=== PATIENT | female | born 1990 | race Caucasian/White ===

== ENCOUNTER 2024-12-05 15:30 | Outpatient (CLI) | payer MEDICAID, SELFPAY ==
--- NOTE | 2024-12-07 12:45 | PDOC.EEG ---
Neurology EEG EEG: [facility] Department of Neurology EEG REPORT Date of Recordin12/05/24 Interpreting Physician: Dr. Kitty Young PCP/Referring Provider: Alissa Andrade ND Reason for study: Yuly Chakraborty is a 34 year-old with spells concerning for seizure. Current Medications: Home Medications ?Medication ?Instructions ?Recorded ?Confirmed ?Type clonidine HCl 0.1 mg tablet 0.1 mg PO TID 11/24/24 12/01/24 History dextroamphetamine-amphetamine ER 20 mg PO DAILY 11/24/24 12/01/24 History 20 mg 24hr capsule,extend release (Adderall XR) gabapentin 400 mg capsule 400 mg PO DAILY 11/24/24 12/01/24 History hydroxyzine HCl 50 mg tablet 50 mg PO QHS 11/24/24 12/01/24 History lamotrigine 200 mg tablet 200 mg PO DAILY 11/24/24 12/01/24 History (Lamictal) lurasidone 60 mg tablet (Latuda) 60 mg PO DAILY 11/24/24 12/01/24 History metformin 500 mg tablet 500 mg PO BIDWMEAL 11/24/24 12/01/24 History olanzapine 5 mg tablet 5 mg PO QHS 11/24/24 12/01/24 History quetiapine 25 mg tablet 25 mg PO QHS 11/24/24 12/01/24 History METHODS: A 21 channel digitized electroencephalogram was performed in the [facility] Clinical Neurophysiology Laboratory. The 10/20 international system of electrode placement was used and bipolar and referential electrode montages were recorded. In addition to EEG the patient was monitored for EKG and lateral/vertical eye movements. Activation procedures of photic stimulation and hyperventilation were performed if applicable. Video was used during activation procedures and during events where applicable. The duration of the recording was ~68 minutes. DESCRIPTION OF EEG: The patient was noted to be awake and drowsy during the recording. During maximal wakefulness a 9-Hz posterior background rhythm was present which was well-modulated, symmetrical, reactive to eye opening, and of moderate voltage. With eye opening the background activity changed to a low voltage mixture of alpha, beta, and occasional theta range frequencies. Faster frequencies were present in the bilateral anterior head regions. There was a normal anterior-posterior voltage gradient. During drowsiness, there was attenuation of the posterior dominant background rhythm and vertex waves. No stage II sleep was recorded. Activating Procedures: Photic stimulation was performed which produced a symmetrical posterior driving response at various flash frequencies. Hyperventilation was performed with moderate effort and produced no physiological slowing of the background. EKG: EKG revealed normal sinus rhythm. INTERPRETATION: This EEG is normal during the awake and drowsy states as well as during photic stimulation and hyperventilation. PRIOR EEG: none CLINICAL CORRELATION: No focal regions of cerebral dysfunction or epileptiform activity was present. Epilepsy remains a clinical diagnosis and a normal EEG does not rule out epilepsy. Clinical correlation is advised. Kitty Young MD Date of service: 12/05/24
== END 2024-12-05 15:31 ==
LOC: RT 01-17 15:31
PROVIDERS: Visit Provider Psychiatry & Neurology Neurology
DX: R40.4 Transient alteration of awareness (principal)
CPT/HCPCS: 95813; 95816

== ENCOUNTER 2024-12-16 00:20 | Outpatient (CLI) | payer MEDICAID, SELFPAY ==
--- NOTE | 2024-12-16 06:15 | DI.MRI_ITS ---
Exam(s) MR BRAIN WO EXAM: MR BRAIN WO CLINICAL HISTORY: new onset seizures,r40.4,nonspecific paroxysmal spell TECHNIQUE: Multiplanar multisequence MRI of the brain was performed. COMPARISON: No exams were available for comparison FINDINGS: VENTRICLES AND EXTRA AXIAL SPACES: Normal in size and morphology for the patient's age. MIDLINE SHIFT: None. CEREBRAL PARENCHYMA: No focus of restricted diffusion to suggest acute infarct. No space-occupying le karen identified. BRAINSTEM/CEREBELLUM: Normal. VISUALIZED PARANASAL SINUSES: Clear. MASTOIDS:Clear. Vasculature: Normal flow void. PITUITARY GLAND: Unremarkable. ORBITS: Unremarkable. IMPRESSION: Unremarkable MRI of the brain. DATA REPOSITORY:
== END 2024-12-16 00:40 ==
LOC: DI 00:20
PROVIDERS: Visit Provider Psychiatry & Neurology Neurology
DX: R40.4 Transient alteration of awareness (principal)
CPT/HCPCS: 70551